=== PATIENT | female | born 1945 | race Caucasian/White ===

== ENCOUNTER 2016-08-25 10:56 | Day surgery (SDC) | payer MEDICARE, BC ==
[2016-08-24 09:31] VITALS: BMI 26.5
[2016-08-25] MEDS ORDERED: cefTRIAXone 2,000 MG in SODIUM CHLORIDE 0.9% 100 ML IVPB ONE (11:00)
[2016-08-25 11:08] VITALS: BP 157/72; PULSE 82; RESP 16; TEMP 98.4
[2016-08-25] MEDS ORDERED: LIDOCAINE 2% (PF) 20 MG/ML 10ML SQ ONE (12:31)
--- NOTE | 2016-09-15 14:32 | IR ---
EXAMINATION TYPE: IR cvc insert >=5 years DATE OF EXAM: 09/15/2016 COMPARISON: NONE CLINICAL HISTORY: Infection Needs long-term intravenous access for antibiotics. PROCEDURE: After informed consent, the skin overlying the upper extremity vein was localized with ultrasound and noted to be compressible and patent. An ultrasound image was obtained and submitted on the patient' s chart. The overlying skin was prepped and draped and Lidocaine was used for local anesthesia. A s kin cammie was made with a scalpel. Access was gained to the vein under ultrasound guidance with a 21 gauge needle and a 0.018 inch wire was advanced. Access site was dilated with Peel-Away sheath and c atheter tailored to the appropriate length and advanced such that the distal tip is at the cavoatrial junction. Spot image was obtained verifying placement. Catheter was fixed to the skin with suture and a sterile dressing was placed following hemostasis. Catheter was aspirated and flushed with sali ne. Patient was discharged in stable condition without complication. Maximal barrier technique is ut ilized. Ultrasound image is documented on the chart. Ultrasound used with sterile technique. Fluoro time and fluoroscopic images submitted to document procedure: 150 intraoperative C-arm images, 0.9 minutes fluoroscopy time IMPRESSION: STATUS POST ULTRASOUND AND FLUOROSCOPIC GUIDED PICC LINE PLACEMENT, READY FOR USE. THIS PROCEDURE WAS PERFORMED BY THE UNDERSIGNED.
== END 2016-08-25 14:10 | disposition home or self-care (01) ==
LOC: CATHCVL 10:56
PROVIDERS: ATTEND Radiology Diagnostic Radiology
DX: M86.8X4 Other osteomyelitis, hand (principal); Z46.89 Encounter for fitting and adjustment of other specified devices; C92.10 Chronic myeloid leukemia, BCR/ABL-positive, not having achieved remission; Z88.5 Allergy status to narcotic agent; Z88.2 Allergy status to sulfonamides; Z79.899 Other long term (current) drug therapy; Z85.828 Personal history of other malignant neoplasm of skin
CPT/HCPCS: 36569; 76937; 77001; C1751; C1769; J2001; J0696

== ENCOUNTER → 2016-11-09 | Outpatient (CLI) | payer MEDICARE, BC ==
--- NOTE | 2016-11-09 13:55 | MR ---
MRI of the left hand HISTORY: Osteomyelitis Multiplanar multisequence and postcontrast images through the left hand following 15 cc MultiHance IV No comparisons The first digit distal phalanx shows abnormal increased signal on T2-weighted sequences, intermediate signal on T1-weighted sequence with associated enhancement following contrast administration. Suspec t there is bone erosion present. Plain film correlation could be performed for additional evaluation. Soft tissues also show similar abnormal signal. Flexor and extensor tendons are intact. No evident a bscess. IMPRESSION: Findings compatible with osteomyelitis to the first digit of the left hand. There is like ly associated cellulitis.
== END | disposition home or self-care (01) ==
LOC: RADMRIMAIN 07:59
PROVIDERS: ATTEND Internal Medicine Infectious Disease
DX: M86.8X4 Other osteomyelitis, hand (principal)
CPT/HCPCS: 73220; A9577

== ENCOUNTER → 2017-01-03 | Outpatient (CLI) | payer MEDICARE, BC ==
[2017-01-03 13:35] LABS: Basophils % (A) 1 %; CH 30.3; CHCM 31.4; Eosinophils # (A) 0.1 k/uL (0-0.7); Eosinophils % (A) 2 %; HCT 35.6 % (34.0-46.0); HDW 2.37; HGB 11.2 gm/dL (11.4-16.0); Luc # (Auto) 0.12; Luc % (Auto) 3; Lymphocytes # (A) 0.6 k/uL (1.0-4.8); Lymphocytes % (A) 15 %; MCH 30.5 pg (25.0-35.0); MCHC 31.4 g/dL (31.0-37.0); MCV 97.3 fL (80.0-100.0); Mean Platelet Volume 7.5; Monocytes # (A) 0.2 k/uL (0-1.0); Monocytes % (A) 6 %; Neutrophils # (A) 2.8 k/uL (1.3-7.7); Neutrophils % (A) 73 %; RBC 3.66 m/uL (3.80-5.40); RDW 15.1 % (11.5-15.5); WBC 3.8 k/uL (3.8-10.6); WBC (Perox) 3.86
[2017-01-03 13:38] LABS: ALT 43 U/L (9-52); AST 28 U/L (14-36); Alkaline Phosphatase 81 U/L (38-126); Anion Gap 9 mmol/L; Blood Urea Nitrogen 21 mg/dL (7-17); C Reactive Protein <5.0 mg/L (<10.0); Calcium 9.6 mg/dL (8.4-10.2); Carbon Dioxide 25 mmol/L (22-30); Chloride 107 mmol/L (98-107); Glucose 92 mg/dL (74-99); Non-African American GFR(MDRD) >60 (>60 ml/min/1.73 sqM); Potassium 4.2 mmol/L (3.5-5.1); Sodium 141 mmol/L (137-145); Total Bilirubin 0.4 mg/dL (0.2-1.3); Total Protein 5.7 g/dL (6.3-8.2)
--- NOTE | 2017-01-03 14:02 | XR ---
EXAMINATION TYPE: XR hand complete LT DATE OF EXAM: 01/03/2017 COMPARISON: NONE HISTORY: 72-year-old female osteomyelitis left thumb, pain. TECHNIQUE: 3 views FINDINGS: Scattered synovial and TFC calcifications are demonstrated. No marginal erosions are seen. Scattered osteoarthritic changes, greatest in the second DIP joint but also scattered throughout the remaining IP joints as well. Soft tissue swelling at the thumb. There is some focal lucency noted within the intramedullary cavity of the first distal phalangeal shaft. No discrete cortical erosion. IMPRESSION: 1. Soft tissue swelling of the thumb. While there is no discrete cortical erosion, an area of lucency is noted within the intramedullary cavity of the first distal phalanx. This could be projectional an d/or secondary to osteopenia. A James's abscess is not excluded. 2. Scattered synovial and TFC calcifications may be idiopathic or could reflect CPPD. 3. Osteoarthritic changes in the DIP joints.
[2017-01-03 15:33] LABS: Erythrocyte Sedimentation Rate 6 mm/hr (0-20)
== END | disposition home or self-care (01) ==
LOC: RADXRMAIN 11:24
PROVIDERS: ATTEND Internal Medicine Infectious Disease
DX: M19.042 Primary osteoarthritis, left hand (principal); M79.89 Other specified soft tissue disorders; Z88.2 Allergy status to sulfonamides; Z88.5 Allergy status to narcotic agent
CPT/HCPCS: 36415; 80053; 85025; 85652; 86140

== ENCOUNTER → 2017-05-18 | Outpatient (CLI) | payer MEDICARE, BC ==
--- NOTE | 2017-05-18 13:20 | US ---
EXAMINATION TYPE: US kidneys/renal and bladder DATE OF EXAM: 05/18/2017 COMPARISON: NONE CLINICAL HISTORY: R31.21 MICROSCOPIC HEMATURIA. Asymptomatic, mild gross hematuria, assess for possib le stone EXAM MEASUREMENTS: Right Kidney: 8.7 x 4.0 x 3.9 cm Left Kidney: 10.3 x 4.4 x 5.5 cm Right Kidney: No hydronephrosis or masses seen Left Kidney: No hydronephrosis or masses seen Bladder: wnl Bilateral Jets seen: yes There is no evidence for hydronephrosis at this point in time. No nephrolithiasis is seen. No sharron s are identified. The urinary bladder is anechoic. Bilateral ureteral jets are seen. IMPRESSION: Unremarkable exam with no evidence of hydronephrosis or nephrolithiasis.
== END | disposition home or self-care (01) ==
LOC: RADUSWWP 12:29
PROVIDERS: ATTEND Internal Medicine
DX: R31.21 Asymptomatic microscopic hematuria (principal)
CPT/HCPCS: 76770

== ENCOUNTER 2019-01-10 10:11 | Day surgery (SDC) | payer BC, MEDICARE ==
[2019-01-09 08:19] VITALS: BMI 28.7
[~2019-01-10 10:11] MED LIST: LACTATED RINGERS 1,000 ML IV SCH; LIDOCAINE 1% 20 ML VIAL (10MG/ML) FOR IV START INTRADERMA PRN
[2019-01-10 10:52] VITALS: TEMP 97.8
[2019-01-10] MEDS ORDERED: LACTATED RINGERS 1,000 ML IV ONE (10:53)
[2019-01-10] MEDS ORDERED: PROPOFOL 10 MG/ML 20 ML VIAL IV ONE (11:53)
[2019-01-10] MEDS ORDERED: LIDOCAINE 1% INJ 10MG/ML (20 ML MDV) ONE (11:53)
--- NOTE | 2019-01-10 12:19 | P.PCN ---
Date of Procedure: 01/10/19 Procedure(s) Performed: BRIEF HISTORY: Patient is a 74-year-old pleasant female scheduled for an elective colonoscopy as a part of evaluation of positive cologuard PROCEDURE PERFORMED: Colonoscopy snare polypectomy. PREOPERATIVE DIAGNOSIS: Positive cologuard. IV sedation per Anesthesia. PROCEDURE: After informed consent was obtained, the patient, was brought into the endoscopy unit. IV sedation was administered by Anesthesia under continuous monitoring. Digital rectal examination was normal. Initially the Olympus CF-160 flexible video colonoscope was then inserted in the rectum, gradually advanced into the cecum without any difficulty. Careful examination was performed as the scope was gradually being withdrawn. Ileocecal valve and the appendiceal orifice were visualized and appeared normal. Prep was excellent. Mucosa of the cecum, ascending colon, normal. In the ascending colon there was a 1 cm broad-based polyp removed by snare polypectomy. Rest of the transverse colon, descending colon, sigmoid colon, and rectum appeared normal. In the mid rectum at 10 cm from the anal was there was a 3 cm broad-based polyp that was removed by piecemeal snare polypectomy and complete polypectomy was accomplished. Retroflexion was performed in the rectum and no lesions were seen. The patient tolerated the procedure well. IMPRESSION: 1 cm ascending colon polyp status post polypectomy 3 cm broad-based mid rectal polyp status post piecemeal snare polypectomy and complete polypectomy accomplished RECOMMENDATIONS: Findings of this examination were discussed with the patient lesser family. She was advised to follow with the biopsy results. She'll be seen in office in a week. Based the biopsy results will plan a repeat flexible sigmoidoscopy in 3-6 months..
[2019-01-10 12:26] VITALS: BP 116/68
[2019-01-10 12:48] VITALS: PULSE 71; RESP 18
== END 2019-01-10 13:10 | disposition home or self-care (01) ==
LOC: ORWHC2ENDO 10:11
PROVIDERS: ATTEND Internal Medicine Gastroenterology
DX: D12.8 Benign neoplasm of rectum (principal); K63.5 Polyp of colon; K57.30 Diverticulosis of large intestine without perforation or abscess without bleeding; I48.91 Unspecified atrial fibrillation; I47.1 Supraventricular tachycardia; G43.909 Migraine, unspecified, not intractable, without status migrainosus; C91.10 Chronic lymphocytic leukemia of B-cell type not having achieved remission; Z79.899 Other long term (current) drug therapy; Z88.1 Allergy status to other antibiotic agents; Z88.2 Allergy status to sulfonamides; Z88.5 Allergy status to narcotic agent; Z90.710 Acquired absence of both cervix and uterus; Z90.49 Acquired absence of other specified parts of digestive tract; Z98.890 Other specified postprocedural states
CPT/HCPCS: 88305; 45385; J2001; J2704

== ENCOUNTER → 2019-09-14 | Outpatient (CLI) | payer MEDICARE | END | disposition home or self-care (01) | LOC: RADMAMWWP 14:29 | PROVIDERS: ATTEND Internal Medicine | DX: Z12.31 Encounter for screening mammogram for malignant neoplasm of breast (principal) | CPT/HCPCS: 77063; 77067 ==

== ENCOUNTER → 2020-11-22 | Outpatient (CLI) | payer MEDICARE ==
--- NOTE | 2020-11-22 17:16 | MR ---
EXAMINATION TYPE: MR lumbar spine wo con DATE OF EXAM: 11/22/2020 COMPARISON: None HISTORY: Low back pain, Rt side leg numbness Multiplanar multiecho imaging of the lumbar spine without contrast. FINDINGS: Vertebra have fairly normal alignment. There is a minimal L3-4 subluxation of a few millimeters. Ther e is moderate-sized posterior disc herniations at L4-5 and L3-4. There is posterior disc herniation a nd facet arthropathy at L2-3 with resultant very severe spinal stenosis. Canal is close to obliterati on. There is less severe stenosis at L3-4 and L4-5. There is no lumbar compression fracture. There is no lumbar paraspinal mass. The visualized sacroiliac joints are intact. IMPRESSION: Multilevel posterior lumbar disc herniation. Multilevel hypertrophic facet arthropathy. Disc herniati on largest on the left side at L4-5. There is a degenerative subluxation deformity at L3-4 with disc herniation and elevation of the posterior longitudinal ligament in the midline and towards the right side. There is moderate spinal stenosis at L3-4 and L4-5. There is very severe spinal stenosis at. L2-3.
== END | disposition home or self-care (01) ==
LOC: RADMRIMAIN 11:53
PROVIDERS: ATTEND Orthopaedic Surgery
DX: M48.061 Spinal stenosis, lumbar region without neurogenic claudication (principal); M51.26 Other intervertebral disc displacement, lumbar region; M47.816 Spondylosis without myelopathy or radiculopathy, lumbar region
CPT/HCPCS: 72148

== ENCOUNTER 2021-01-09 09:41 | Day surgery (SDC) | payer MEDICARE ==
[2021-01-07 13:27] VITALS: BMI 27.4
[~2021-01-09 09:41] MED LIST changes: -LIDOCAINE 1% 20 ML VIAL (10MG/ML) FOR IV START INTRADERMA PRN
[2021-01-09] MEDS ORDERED: LACTATED RINGERS 1,000 ML IV ONE (10:10)
[2021-01-09 10:14] VITALS: TEMP 97.8
[2021-01-09] MEDS ORDERED: PROPOFOL 10 MG/ML 20 ML VIAL IV ONE (11:12)
[2021-01-09 11:40] VITALS: RESP 16
--- NOTE | 2021-01-09 11:52 | P.PCN ---
Date of Procedure: 01/09/21 Procedure(s) Performed: BRIEF HISTORY: Patient is a 76-year-old pleasant white female scheduled for an elective colonoscopy as a part of evaluation of prior history of colon polyps. Last colonoscopy was in December 2018 and she was noted to have a 3 cm rectal polyp and biopsies revealed adenoma PROCEDURE PERFORMED: Colonoscopy with snare polypectomy. PREOPERATIVE DIAGNOSIS: Followed colon polyps. IV sedation per Anesthesia. PROCEDURE: After informed consent was obtained, the patient, was brought into the endoscopy unit. IV sedation was administered by Anesthesia under continuous monitoring. Digital rectal examination was normal. Initially the Olympus CF-160 flexible video colonoscope was then inserted in the rectum, gradually advanced into the cecum without any difficulty. Careful examination was performed as the scope was gradually being withdrawn. Ileocecal valve and the appendiceal orifice were visualized and appeared normal. Prep was excellent. Mucosa of the cecum, a normal. In the cecum there was a 1 cm flat polyp removed by snare polypectomy. Rest of the ascending colon, transverse colon, descending colon, sigmoid colon, and rectum appeared normal. Scattered sigmoid diverticulosis seen. Retroflexion was performed in the rectum and no lesions were seen. The patient tolerated the procedure well. IMPRESSION: 1 cm cecal polyp status post snare polypectomy Scattered sigmoid diverticulosis RECOMMENDATIONS: Findings of this examination were discussed with the patient as her family. She was advised to follow with the biopsy results. If the biopsy results adenoma she can have a repeat colonoscopy in 3 years.
[2021-01-09 11:56] VITALS: BP 126/68; PULSE 69
== END 2021-01-09 12:31 | disposition home or self-care (01) ==
LOC: ORWHC2ENDO 09:41
PROVIDERS: ATTEND Internal Medicine Gastroenterology
DX: Z12.11 Encounter for screening for malignant neoplasm of colon (principal); Z86.010 Personal history of colon polyps; K57.90 Diverticulosis of intestine, part unspecified, without perforation or abscess without bleeding; D12.0 Benign neoplasm of cecum; I47.2 Ventricular tachycardia; M19.90 Unspecified osteoarthritis, unspecified site; K21.9 Gastro-esophageal reflux disease without esophagitis; Z79.899 Other long term (current) drug therapy
CPT/HCPCS: 88305; 45385; J2704

== ENCOUNTER → 2021-05-12 | Outpatient (CLI) | payer MEDICARE ==
[2021-05-12 14:35] LABS: Appearance,Urine Clear (Clear); Bacteria,Urine Few /hpf; Bilirubin,Urine Negative (Negative); Blood,Urine Negative (Negative); Color,Urine Light Yellow; Glucose,Urine (UA) Negative (Negative); Ketones,Urine Negative (Negative); Leukocyte Esterase,Urine Small (Negative); Mucus,Urine Rare /hpf; Nitrite,Urine Negative (Negative); PH, Urine 5.5 (5.0-8.0); Protein,Urine Negative (Negative); RBC,Urine 1 /hpf (0-5); Specific Gravity,Urine 1.008 (1.001-1.035); Squamous Epithelial Cell,Urine 5 /hpf (0-4); Urobilinogen,Urine <2.0 mg/dL (<2.0); WBC,Urine 2 /hpf (0-5)
[2021-05-12 14:46] LABS: Creatinine,Urine Random 48.1 mg/dL; Protein/Creatinine Ratio,Urine 0.27
[2021-05-12 18:57] LABS: Basophils # (A) 0.02 X 10*3/uL (0.00-0.10); Basophils % (A) 0.4 %; Eosinophils # (A) 0.08 X 10*3/uL (0.04-0.35); Eosinophils % (A) 1.8 %; HGB 10.6 g/dL (12.0-15.0); Immature Grans, Automated 0.2 %; Lymphocytes # (A) 0.96 X 10*3/uL (0.90-5.00); Lymphocytes % (A) 21.1 %; MCH 31.6 pg (27.0-32.0); MCHC 32.1 g/dL (32.0-37.0); MCV 98.5 fL (80.0-97.0); Monocytes # (A) 0.38 X 10*3/uL (0.20-1.00); Monocytes % (A) 8.3 %; NRBC Per 100 WBC 0 /100 WBCS (0.0-0.0); Neutrophils # (A) 3.11 X 10*3/uL (1.80-7.70); Neutrophils % (A) 68.2 %; Platelet Count 167 X 10*3/uL (140-440); RBC 3.35 X 10*6/uL (4.10-5.20); RDW 15.9 % (11.5-14.5); WBC 4.56 X 10*3/uL (4.50-10.00)
[2021-05-12 19:06] LABS: % Iron Saturation 20.76 (12.00-45.00); African American GFR (CKD) 46.8 (60.0-200.0); Anion Gap 10.1 mmol/L (10.00-18.00); BUN/Creat Ratio 15.31 Ratio (12.00-20.00); Blood Urea Nitrogen 19.9 mg/dL (9.0-27.0); Carbon Dioxide 24.9 mmol/L (20.0-27.5); Magnesium 2.1 mg/dL (1.5-2.4); Non-African American GFR(CKD) 40.4 (60.0-200.0); Phosphorus 2.9 mg/dL (2.4-5.1)
[2021-05-12 22:28] LABS: Albumin 4.1 g/dL (3.8-4.9)
== END | disposition home or self-care (01) ==
LOC: LABWHC1 13:47
PROVIDERS: ATTEND Internal Medicine Nephrology
DX: N25.81 Secondary hyperparathyroidism of renal origin (principal); N18.32 Chronic kidney disease, stage 3b; N39.0 Urinary tract infection, site not specified; E55.9 Vitamin D deficiency, unspecified; M10.9 Gout, unspecified; D64.9 Anemia, unspecified; R80.9 Proteinuria, unspecified
CPT/HCPCS: 36415; 80048; 81001; 82040; 82306; 82570; 82728; 83540; 83550; 83735; 83970; 84100; 84156; 84550; 85025; 86334; 86335

== ENCOUNTER → 2021-05-18 | Outpatient (CLI) | payer MEDICARE ==
--- NOTE | 2021-05-18 17:02 | US ---
EXAMINATION TYPE: US kidneys/renal and bladder DATE OF EXAM: 05/18/2021 COMPARISON: NONE CLINICAL HISTORY: N17.9 GITA. EXAM MEASUREMENTS: Right Kidney: 9.1 x 3.3 x 4.6 cm Left Kidney: 9.5 x 4.2 x 3.9 cm Right Kidney: mild hydro Left Kidney: superior pole obscure by overlying bowel gas, ?prominent renal pelvis Bladder: wnl IMPRESSION: 1. There is mild prominence of the right renal collecting system. No obstructing etiology is identifi ed on this exam.
== END | disposition home or self-care (01) ==
LOC: RADUSWWP 13:17
PROVIDERS: ATTEND Internal Medicine Nephrology
DX: N17.9 Acute kidney failure, unspecified (principal)
CPT/HCPCS: 76770

== ENCOUNTER → 2021-07-24 | Outpatient (CLI) | payer MEDICARE ==
--- NOTE | 2021-07-24 14:08 | US ---
EXAMINATION TYPE: US kidneys/renal and bladder DATE OF EXAM: 07/24/2021 COMPARISON: US 2021 CLINICAL HISTORY: N13.30 UNSPECIFIED HYDRONEPHROSIS. EXAM MEASUREMENTS: Right Kidney: 8.5 x 3.7 x 3.8 cm Left Kidney: 9.2 x 4.3 x 4.3 cm Right Kidney: visualized portions wnl, inferior pole limited by overlying bowel gas Left Kidney: visualized portions wnl, superior pole limited by overlying bowel gas Bladder: not fully distended Bilateral Jets seen: no There is no evidence for hydronephrosis at this point in time. No nephrolithiasis is seen. No sharron s are identified. The urinary bladder is anechoic. Bilateral ureteral jets are seen. IMPRESSION: The kidneys are diminutive in size. Otherwise unremarkable study.
== END | disposition home or self-care (01) ==
LOC: RADUSWWP 13:20
PROVIDERS: ATTEND Urology
DX: N27.1 Small kidney, bilateral (principal)
CPT/HCPCS: 76770

== ENCOUNTER → 2021-08-25 | Outpatient (CLI) | payer MEDICARE ==
[2021-08-25 18:36] LABS: Basophils # (A) 0.01 X 10*3/uL (0.00-0.10); Basophils % (A) 0.2 %; Eosinophils # (A) 0.03 X 10*3/uL (0.04-0.35); Eosinophils % (A) 0.7 %; HCT 31.7 % (37.2-46.3); HGB 10.1 g/dL (12.0-15.0); Immature Grans, Automated 0.4 %; Lymphocytes # (A) 0.75 X 10*3/uL (0.90-5.00); Lymphocytes % (A) 16.5 %; MCH 32.2 pg (27.0-32.0); MCHC 31.9 g/dL (32.0-37.0); Mean Platelet Volume 11.5 fL (9.5-12.2); Monocytes # (A) 0.37 X 10*3/uL (0.20-1.00); Monocytes % (A) 8.1 %; NRBC Per 100 WBC 0 /100 WBCS (0.0-0.0); Neutrophils # (A) 3.37 X 10*3/uL (1.80-7.70); Neutrophils % (A) 74.1 %; Platelet Count 161 X 10*3/uL (140-440); RBC 3.14 X 10*6/uL (4.10-5.20); RDW 15.7 % (11.5-14.5); WBC 4.55 X 10*3/uL (4.50-10.00)
[2021-08-25 19:08] LABS: Albumin 4.1 g/dL (3.8-4.9)
[2021-08-25 19:47] LABS: Appearance,Urine Clear (Clear); Bilirubin,Urine Negative (Negative); Blood,Urine Negative (Negative); Color,Urine Yellow (Yellow); Ketones,Urine Negative (Negative); Nitrite,Urine Negative (Negative); PH, Urine 5.5 (5.0-8.0); Specific Gravity,Urine 1.006 (1.001-1.030); Urobilinogen,Urine 0.2 (0.2,1.0)
[2021-08-25 23:53] LABS: % Iron Saturation 27.08 (12.00-45.00); African American GFR (CKD) 50.5 (60.0-200.0); Anion Gap 13.6 mmol/L (10.00-18.00); BUN/Creat Ratio 14.92 Ratio (12.00-20.00); Blood Urea Nitrogen 18.2 mg/dL (9.0-27.0); Calcium 9.9 mg/dL (8.7-10.3); Carbon Dioxide 22.1 mmol/L (20.0-27.5); Non-African American GFR(CKD) 43.6 (60.0-200.0); Phosphorus 2.8 mg/dL (2.4-5.1); Potassium 4.9 mmol/L (3.5-5.5); Uric Acid 5.6 mg/dL (2.9-7.7)
== END | disposition home or self-care (01) ==
LOC: LABWHC1 13:29
PROVIDERS: ATTEND Nurse Practitioner Family
DX: E55.9 Vitamin D deficiency, unspecified (principal); N25.81 Secondary hyperparathyroidism of renal origin; M10.9 Gout, unspecified; N39.0 Urinary tract infection, site not specified; D64.9 Anemia, unspecified; N18.32 Chronic kidney disease, stage 3b; R80.9 Proteinuria, unspecified
CPT/HCPCS: 36415; 80048; 81003; 82040; 82306; 82728; 83540; 83550; 83735; 83970; 84100; 84550; 85025

== ENCOUNTER → 2021-10-02 | Outpatient (CLI) | payer MEDICARE ==
--- NOTE | 2021-10-02 13:31 | CT ---
EXAMINATION TYPE: CT lumbar spine wo con CT DLP: 534.5 mGycm, Automated exposure control for dose reduction was used. DATE OF EXAM: 10/02/2021 12:46 PM COMPARISON: None. CLINICAL INDICATION:Female, 76 years old with history of Z98.1 arthrodesis status, Hx of lumbar spine sx, continuing low back pain. TECHNIQUE: Multiple axial images were obtained from the midportion of T11 through the sacroiliac jef nts. Soft tissue and bone windows in coronal and sagittal planes were obtained and reviewed. FINDINGS: Alignment: There are 5 lumbar type vertebral bodies. Vertebral body heights are grossly maintained th ere is levoscoliosis apex L3. Multilevel disc degeneration changes are present. Bone: There is multilevel fixation hardware of the spine extending from L2 to L5. Hardware is intact. No evidence mo hardware lucency to suggest loosening partial visualization of fixation screws with in the hips are present. There is laminectomy changes extending from L2 through L4. There is osseous fusion of the lateral aspect of the L2-L5 vertebral bodies on the right. There is open facet on the l eft L4-L5 facet without arthrodesis and incomplete arthrodesis of L2-L3 and L3-L4. Discs: Evaluation for spinal canal and neural foraminal stenosis is limited by streak artifact from h ardware. T12-L1: No significant spinal canal or neural foraminal stenosis is identified. L1-L2: No significant spinal canal or neural foraminal stenosis is identified. L2-L3: Postsurgical changes with facet arthropathy result in moderate bilateral neural foraminal sten osis. Spinal canal appears patent. L3-L4: Postsurgical changes with facet arthropathy result in mild bilateral neural foraminal stenosis . Spinal canal appears patent. L4-L5: Postsurgical changes with facet arthropathy result in moderate bilateral neural foraminal elaine nosis. There is at least moderate spinal canal stenosis at this level. L5-S1: No spinal canal or neural foraminal stenosis is identified. Other: Scattered clonic diverticula are seen throughout the pelvis. There is atherosclerosis of the a rterial vasculature. Small hiatal hernia is present. IMPRESSION: 1. Postsurgical changes to the spine with good arthrodesis of the right posterior elements, arthrode sis on the left is incomplete at multiple levels. No evidence of hardware failure. 2. Multilevel at least moderate neural foraminal stenosis secondary to facet joint arthropathy and p ostsurgical changes. This is worse at L4-L5 and L2-L3 bilaterally.
== END | disposition home or self-care (01) ==
LOC: RADCTMAIN 12:16
PROVIDERS: ATTEND Orthopaedic Surgery
DX: M47.816 Spondylosis without myelopathy or radiculopathy, lumbar region (principal); M99.73 Connective tissue and disc stenosis of intervertebral foramina of lumbar region; Z98.1 Arthrodesis status
CPT/HCPCS: 72131

== ENCOUNTER → 2022-01-15 | Outpatient (CLI) | payer MEDICARE ==
--- NOTE | 2022-01-18 08:59 | MM ---
Reason for Exam: Screening (asymptomatic). Last mammogram was performed 2 year(s) and 4 month(s) ago. Patient History: Menarche at age 14. First Full-Term at age 22. Right ovary removed at age 42. Hysterectomy at age 42. Postmenopausal. Other cancer. Bilateral Benign Excisional Biopsy. Maternal aunt had breast cancer, age 50. Risk Values: Macy 5 year model risk: 1.9%. NCI Lifetime model risk: 4.0%. Prior Study Comparison: 12/24/2014 Screening Mammogram, [facility] . 01/11/2017 Screening Mammogram, [facility] . 09/14/2019 Bilateral Screening Mammogram, [facility]. Tissue Density: The breast tissue is extremely dense which could obscure a lesion on mammography. Findings: Analyzed By CAD. Pattern appears symmetrical and stable. Scattered benign stable appearing calcifications are present. No suspicious groups of microcalcifications, spiculated or lobular masses, architectural distortion or other secondary signs of malignancy are mammographically apparent. Overall Assessment: Benign, BI-RAD 2 Management: Screening Mammogram of both breasts in 1 year. A negative mammogram report should not preclude additional follow up of suspicious palpable abnormalities. Patient should continue monthly self breast exam. A clinical breast exam by your physician is recommended on an annual basis and results should be correlated with mammographic findings. Electronically signed and approved by: Bernard Franklin D.O. Radiologis
== END | disposition home or self-care (01) ==
LOC: RADMAMWWP 12:29
PROVIDERS: ATTEND Internal Medicine
DX: Z12.31 Encounter for screening mammogram for malignant neoplasm of breast (principal); Z78.0 Asymptomatic menopausal state; Z80.3 Family history of malignant neoplasm of breast
CPT/HCPCS: 77063; 77067

== ENCOUNTER → 2022-02-15 | Outpatient (CLI) | payer MEDICARE ==
--- NOTE | 2022-02-15 13:38 | US ---
EXAMINATION TYPE: US kidneys/renal and bladder DATE OF EXAM: 02/15/2022 COMPARISON: CT lumbar spine 2021, US July 24, 2021 CLINICAL HISTORY: N18.32 STAGE 3 CHR KIDNEY DISEASE. CKD. EXAM MEASUREMENTS: Right Kidney: 9.0 x 4.8 x 3.6 cm Left Kidney: 10.1 x 4.2 x 4.5 cm Right Kidney: Appearance of hydronephrosis, scanned post void as well. Left Kidney: Appearance of hydronephrosis, scanned post void as well. Bladder: Appears anechoic Bilateral Jets seen: Yes IMPRESSION: Mild to moderate right greater than left hydronephrosis is felt to remain present and mor e prominent from most recent ultrasound. Further workup and follow-up advised.
== END | disposition home or self-care (01) ==
LOC: RADUSWWP 12:04
PROVIDERS: ATTEND Internal Medicine Nephrology
DX: N18.32 Chronic kidney disease, stage 3b (principal); N13.30 Unspecified hydronephrosis
CPT/HCPCS: 76770

== ENCOUNTER → 2022-03-02 | Outpatient (CLI) | payer MEDICARE ==
--- NOTE | 2022-03-02 19:56 | CT ---
EXAMINATION TYPE: CT abdomen pelvis wo con DATE OF EXAM: 03/02/2022 HISTORY: Hydronephrosis unspecified. CT DLP: 431.4 mGycm. Automated Exposure Control for Dose Reduction was Utilized. TECHNIQUE: CT scan of the abdomen and pelvis is performed without oral or IV contrast. COMPARISON: Renal ultrasound February 15, 2022. MRI lumbar spine November 09, 2021 FINDINGS: Within the limitations of a non-contrast study, the following observations are made. LUNG BASES: Mild anterior linear scarring in the lung bases with slight nodularity or likely nodular scarring on the right noted. LIVER/GB: Gallbladder not seen and presumed surgically absent. PANCREAS: No significant abnormality is seen. SPLEEN: No significant abnormality is seen. ADRENALS: No significant abnormality is seen. KIDNEYS: No renal calculi seen bilaterally. No left-sided hydronephrosis. Prominent of right renal pe lvis without calyceal dilatation consistent with extrarenal pelvis. BOWEL: Debris-filled stomach suggests recent meal ingestion. No suspicious small or large bowel dilat ation is seen. Left and sigmoid colonic diverticula are present. GENITAL ORGANS: Suboptimal evaluation due to bilateral hip surgery. Uterus may be surgically absent, not well seen. LYMPH NODES: No greater than 1cm abdominal or pelvic lymph nodes are appreciated. OSSEOUS STRUCTURES: Metallic artifact from bilateral hip arthroplasty causes streak artifact limiting evaluation of pelvic structures. There is levoconvex scoliosis centered at L3 level. There are poste rior intrapedicular rods and screws transfixing L2-L5 levels bilaterally. Posterior multilevel valencia ctomy defects and spinous process resection is seen. OTHER: [id number] peripheral calcified plaque of the aorta extends into branch vessels. IMPRESSION: No hydronephrosis seen bilaterally. No renal calculi seen. Suspect extrarenal pelvis on t he right mimicking hydronephrosis.
== END | disposition home or self-care (01) ==
LOC: RADCTMAIN 16:37
PROVIDERS: ATTEND Urology
DX: N13.30 Unspecified hydronephrosis (principal)
CPT/HCPCS: 74176

== ENCOUNTER → 2022-11-18 | Outpatient (CLI) | payer MEDICARE ==
[2022-11-18 12:50] LABS: Appearance,Urine Clear (Clear); Bilirubin,Urine Negative (Negative); Blood,Urine Negative (Negative); Color,Urine Light Yellow; Glucose,Urine (UA) Negative (Negative); Ketones,Urine Negative (Negative); Leukocyte Esterase,Urine Negative (Negative); Nitrite,Urine Negative (Negative); Protein,Urine Negative (Negative); Specific Gravity,Urine 1.012 (1.001-1.035); Urobilinogen,Urine <2.0 mg/dL (<2.0)
[2022-11-18 16:42] LABS: % Iron Saturation 21.64 (12.00-45.00); Albumin 4.8 d/dL (3.8-4.9); Blood Urea Nitrogen 27.6 mg/dL (9.0-27.0); Calcium 9.7 mg/dL (8.7-10.3); Carbon Dioxide 26.1 mmol/L (21.6-31.8); Chloride 101 mmol/L (96-109); Glucose 113 mg/dL (70-110); Iron 82 UG/DL (50-170); Magnesium 2.2 mg/dL (1.5-2.4); Phosphorus 2.9 mg/dL (2.4-5.1); Potassium 4.3 mmol/L (3.5-5.5); Sodium 140 mmol/L (135-145); Total Iron Binding Capacity 379 UG/DL (228-460); Uric Acid 6.3 mg/dL (2.9-7.7)
[2022-11-18 16:52] LABS: Basophils # (A) 0.06 X 10*3/uL (0.00-0.10); Basophils % (A) 0.7 %; Eosinophils # (A) 0.33 X 10*3/uL (0.04-0.35); Eosinophils % (A) 3.8 %; HGB 15.9 d/dL (12.0-15.0); Lymphocytes # (A) 1.12 X 10*3/uL (0.90-5.00); Lymphocytes % (A) 12.9 %; MCH 31.9 pg (27.0-32.0); MCHC 33.8 d/dL (32.0-37.0); MCV 94.4 FL (80.0-97.0); Mean Platelet Volume 10.9 FL (9.5-12.2); Monocytes # (A) 1.14 X 10*3/uL (0.20-1.00); Monocytes % (A) 13.1 %; NRBC Per 100 WBC 0 X 10*3/uL (0.00-0.01); Neutrophils # (A) 5.99 X 10*3/uL (1.80-7.70); Neutrophils % (A) 69.2 %; Platelet Count 245 X 10*3/uL (140-440); RBC 4.98 X 10*6/uL (4.10-5.20); RDW 12.5 % (11.5-14.5); WBC 8.67 X 10*3/uL (4.50-10.00)
[2022-11-18 20:10] LABS: Urine Creatinine 43.3 mg/dL (28.0-217.0)
== END | disposition home or self-care (01) ==
LOC: LABWHC1 11:41
PROVIDERS: ATTEND Nurse Practitioner Family
DX: N25.81 Secondary hyperparathyroidism of renal origin (principal); N18.32 Chronic kidney disease, stage 3b; D63.1 Anemia in chronic kidney disease; E55.9 Vitamin D deficiency, unspecified; M10.9 Gout, unspecified; N39.0 Urinary tract infection, site not specified
CPT/HCPCS: 36415; 80048; 81003; 82040; 82043; 82306; 82570; 82728; 83540; 83550; 83735; 83970; 84100; 84550; 85025

== ENCOUNTER → 2023-12-01 | Outpatient (CLI) | payer MEDICARE ==
--- NOTE | 2023-12-02 08:43 | MM ---
Reason for Exam: Screening (asymptomatic). Last mammogram was performed 1 year(s) and 11 month(s) ago. Patient History: Menarche at age 14. First Full-Term at age 22. Right ovary removed at age 42. Hysterectomy at age 42. Postmenopausal. Other cancer. Bilateral Benign Excisional Biopsy. Maternal aunt had breast cancer, age 50. Maternal cousin had breast cancer, age 24. Risk Values: Macy 5 year model risk: 1.9%. NCI Lifetime model risk: 3.8%. Prior Study Comparison: 12/24/2014 Screening Mammogram, [facility] . 01/11/2017 Screening Mammogram, [facility] . 09/14/2019 Bilateral Screening Mammogram, [facility]. 01/15/2022 Bilateral MG 3D screening mammo w/cad, [facility]. Tissue Density: The breasts are extremely dense, which lowers the sensitivity of mammography. Findings: Analyzed By CAD. There is no suspicious group of microcalcifications or new suspicious mass in either breast. Overall Assessment: Benign, BI-RAD 2 Management: Screening Mammogram of both breasts in 1 year. . Patient should continue monthly self-breast exams. A clinical breast exam by your physician is recommended on an annual basis. This exam should not preclude additional follow-up of suspicious palpable abnormalities. Note on Macy scores and lifetime risk: 1. A Macy score greater than 3% is considered moderate risk. If this is the case, consider specialist referral to assess eligibility for a risk reducing agent. 2. If overall lifetime risk for the development of breast cancer is 20% or higher, the patient may qualify for future screening with alternating mammogram and breast MRI. Electronically signed and approved by: Bernard Simpson M.D. Radiologis
== END | disposition home or self-care (01) ==
LOC: RADMAMWWP 11:14
PROVIDERS: ATTEND Internal Medicine
DX: Z12.31 Encounter for screening mammogram for malignant neoplasm of breast
CPT/HCPCS: 77063; 77067

== ENCOUNTER → 2024-04-19 | Outpatient (CLI) | payer MEDICARE ==
[2024-04-19 18:41] LABS: Basophils # (A) 0.02 X 10*3/uL (0.00-0.10); Basophils % (A) 0.4 %; Eosinophils # (A) 0.09 X 10*3/uL (0.04-0.35); Eosinophils % (A) 1.6 %; HCT 30.7 % (37.2-46.3); HGB 10.1 g/dL (12.0-15.0); Lymphocytes # (A) 0.98 X 10*3/uL (0.90-5.00); Lymphocytes % (A) 17.2 %; MCH 33.2 pg (27.0-32.0); MCHC 32.9 g/dL (32.0-37.0); Mean Platelet Volume 11.6 FL (9.5-12.2); Monocytes # (A) 0.41 X 10*3/uL (0.20-1.00); Monocytes % (A) 7.2 %; NRBC Per 100 WBC 0 X 10*3/uL (0.00-0.01); Neutrophils # (A) 4.18 X 10*3/uL (1.80-7.70); Neutrophils % (A) 73.4 %; Platelet Count 184 X 10*3/uL (140-440); RBC 3.04 X 10*6/uL (4.10-5.20); RDW 14.6 % (11.5-14.5); WBC 5.69 X 10*3/uL (4.50-10.00)
== END | disposition home or self-care (01) ==
LOC: LABWHC1 12:44
PROVIDERS: ATTEND Internal Medicine Hematology & Oncology
DX: C92.10 Chronic myeloid leukemia, BCR/ABL-positive, not having achieved remission (principal)
CPT/HCPCS: 36415; 85025